=== PATIENT | female | born 1955 | race Caucasian/White ===

== ENCOUNTER 2016-05-14 13:00 | Outpatient (RCR) | payer OTHER ==
[~2016-05-14 13:00] MED LIST: CODCAP PO; GLUC1CAP10 PO; PERC5TAB6 PO; PROBCAP14 PO; ZOFR20TA PO
== END 2016-05-15 ==
LOC: M OT 13:00
PROVIDERS: ATTEND Physician Assistant Surgical
DX: Z51.89 Encounter for other specified aftercare (principal); Z98.890 Other specified postprocedural states

== ENCOUNTER → 2016-06-04 | Outpatient (CLI) | payer OTHER, MEDICAID ==
--- NOTE | 2016-06-04 23:45 | ECWPNPC ---
PATIENT NAME: NEAL MENARD : 1955 GENDER: FEMALE VISIT DATE: 06/04/2016 DISCHARGE DATE: 06/04/16 1539 VISIT LOCKED DATE TIME: PHYSICIAN: TAMIE CARTER RESOURCE: TAMIE CARTER REASON FOR APPOINTMENT 1. LEFT WRIST HISTORY OF PRESENT ILLNESS NEW PATIENT CONSULT: 60 Y/O FEMALE REFERRED BY [facility] FOR PERSISTENT LEFT WRIST PAIN S/P LEFT WRIST FX IN FEBRUARY 2016.HAD EMERGENCY SURGERY WITH HARDWARE PLACEMENT ON .THIS WAS DONE BY DR. DEL CASTILLO AN EMERGENCY ROOM PHYSICIAN AT THE TIME WHO NO LONGER IS IN PRACTICE.HAS BEEN ATTENDING PT 3X WK X2 MOS WITH LAST VISIT BEING TOMMOROW.REPORTS HYPERSENSITIVITY TO LIGHT TOUCH AND HYPERASTHESIA.REPORTING SWELLING AND COLOR CHANGES FROM REDDISH PURPLE TO NORMAL.REPORTING SWEATING OVER LEFT HAND AND FINGERS.UNABLE TO MAKE A FIST.REPORTS FEELING OF FREEZING SENSATION AND BURNING.INDEX FINGER IS NUMB AND IS THE WORST AREA OF PAIN AND PARATHESIAS.HAS NOT SEEN A SURGEON SINCE FRACTURE.RATING PAIN VAS 4/10. WHEN DID YOUR PAIN FIRST START? . BRIEFLY DESCRIBE HOW YOUR PAIN STARTED? . HOW DOES YOUR PAIN CHANGE WITH TIME? . DOES YOUR PAIN AWAKEN YOU FROM SLEEP? . HOW MANY HOURS OF SLEEP DO YOU NORMALLY GET? . ANY DIAGNOSTIC TESTING? . FACILITY WHERE TESTS WERE DONE? ____. PAIN TREATMENT TREATMENT YES CANCER HAVE YOU EVER HAD ANY TYPE OF CANCER?NO NO. PAIN SCREENING: PATIENT HAS A COMPLAINT OF ACUTE OR CHRONIC PAIN YES FALL RISK SCREENING: SCREENING :NO FALLS IN THE PAST YEAR BALDERAS INVENTORY: QUESTIONNAIRE ASSESSEDTBD SCORE VALUE CALCULATED TBD CURRENT MEDICATIONS TAKING MULTIVITAMIN ADULT - TABLET ORALLY TAKING PROBIOTIC - CAPSULE ORALLY TAKING GLUCOSAMINE 500 MG CAPSULE 1 CAPSULE WITH A MEAL ORALLY ONCE A DAY TAKING ASPIRIN 500 MG TABLET 1 TABLET NEEDED ORALLY EVERY 6 HRS DISCONTINUED ASPIRIN ADULT LOW STRENGTH 81 MG TABLET DELAYED RELEASE 1 TABLET ORALLY ONCE A DAY MEDICATION LIST REVIEWED AND RECONCILED WITH THE PATIENT PAST MEDICAL HISTORY 08/31/2012 LYME DISEASE SEVERE HEADACHE LP.ABY WAS 7.75 IGM POSITIVE IGG NEGATIVE ARTHRITIS PT REPORTS HX OF IRREGULAR HEARTBEAT, UNSURE OF DETAILS ALLERGIES N.K.D.A. SURGICAL HISTORY LEFT WRIST FRACTURE 03/02 GAN[facility] CYST LEFT WRIST FAMILY HISTORY FATHER: MOTHER: 78 YRS MOM OF PNEUMONIA. SOCIAL HISTORY GENERAL: PAIN CLINIC PFS, CLERGY, PUBLIC HEALTH REFERRALS PFS REFERRAL NEEDED?NO CLERGY REFERRAL NEEDED?NO PUBLIC HEALTH REFERRAL NEEDED?NO WAS THE PROVIDER NOTIFIED OF ANY PERTINENT INFO?YES PSYCHOLOGICAL HX TREATMENTNO ALCOHOL OR DRUG TREATMENTNO PATIENT: ____USES MARIJUANA OCCASIONALLY. ADVANCED DIRECTIVES HEALTH CARE PROXY?NO POWER OF COMMUTER TRAIN OPERATOR?NO SCREENING/ASSESSMENT TOOL NUTRITION ASSESSEDYES ARE YOU ON ANY SPECIAL DIET?NO ANY SIGNIFICANT CHANGES RELATED TO EATING, WEIGHT GAIN/LOSS, OR BOWEL HABITS?NO IF YES, IS YOUR PRIMARY CARE PROVIDER AWARE OF THIS?NO SPECIAL NEEDS CONTACTS: NO , CANE: NO , GLASSES: NO , WALKER: NO , LEVEL OF CARE? SELF , DENTURES: NO , REFERRALS NEEDED: NO , HEARING AIDS: NO , WHEELCHAIR: NO . TOBACCO USE ARE YOU A:FORMER SMOKER < 1/2 PPD X 20 YEARS, QUIT AT AGE 47 CAFFEINE CAFFEINE USE?YES HOW OFTEN AND HOW MUCH? 2 CUPS COFFEE/ DAY RECREATIONAL DRUG USE DRUG USE?YES OCCASIONAL USE OF MARIJUANA HOSPITALIZATION/MAJOR DIAGNOSTIC PROCEDURE PER PT, PERFORATED BOWEL DURING COLONOSCOPY REVIEW OF SYSTEMS CONSTITUTIONAL: ANY CHANGE IN YOUR MEDICAL CONDITION? YES PT BROKE HER LEFT WRIST 03/02, AND SUBSEQUENTLY HAD SURGERY 03/03. SHE HAS HAD SIGNIFICANT SWELLING AND DISCOMFORT IN HER LEFT HAND SINCE THAT TIME. . CHILLS NO . FEVER NO . INFECTION: DO YOU HAVE NEW INFECTIONS? NO . DO YOU HAVE HISTORY OF MRSA? NO . MUSCULOSKELETAL: ANY NEW PATTERNS OF PAIN OR NUMBNESS? YES LEFT HAND PAINFUL AND NUMB SINCE FRACTURING IT 03/02. SHE IS UNABLE TO USE HER LEFT HAND. . SYTEMIC LUPUS NO . GASTROENTEROLOGY: ANY NEW CHANGE IN BOWEL CONTROL? NO . BARRETTS ESOPHAGUS NO . CIRRHOSIS NO . HEPATITIS NO . LIVER FAILURE NO . ACID REFLUX NO . UNEXPLAINED WEIGHT LOSS NO . GENITOURINARY: ANY NEW CHANGE IN BLADDER CONTROL? NO . IS THERE A CHANCE YOU COULD BE ? NO . HEMATOLOGY/LYMPH: DO YOU TAKE ANY BLOOD THINNERS? (FOR EXAMPLE- COUMADIN, PLAVIX, AGGRENOX, PLATEL, PRADAXA, OR XARELTO) NO . WHEN WAS YOUR LAST DOSE? DATE: TIME: . LOW PLATELET COUNT NO . SICKLE CELL DISEASE NO . VON WILLIEBRANDS NO . FACTOR V LEIDEN NO . THALLASEMIA NO . ANEMIA NO . EASY BRUISING NO . NEUROLOGY: HAVE YOU FALLEN IN THE PAST 6 MONTHS? YES PT REPORTS SHE CAUGHT HER HEEL ON A RUG AND WENT BACKWARDS, SUSTAINING A FRACTURED LEFT WRIST. . ANY NEW EXTREMITY NUMBNESS OR WEAKNESS? NO . HEAD INJURY NO . DEMENTIA NO . CEREBRAL PALSY NO . MULTIPLE SCLEROSIS NO . DIZZINESS NO . HEADACHE NO . STROKES NO . VERTIGO NO . CARDIOLOGY: DO YOU HAVE A PACEMAKER OR DEFIBRILLATOR? NO . ANGINA NO . HEART ATTACK NO . HEART SURGERY NO . CONGESTIVE HEART FAILURE/FLUID OVERLOAD NO . CHEST PAIN PT REPORTS OCCASIONAL CHEST DISCOMFORT, FEELS IT IS RELATED TO INDIGESTION . HIGH BLOOD PRESSURE NO . IRREGULAR HEART BEAT PT REPORTS THAT SHE WAS TOLD DURING HER COLONOSCOPY, SHE HAD AN IRREGULAR HEART BEAT, BUT NO DETAILS ABOUT IT. . RESPIRATORY: HAVE YOU BEEN SICK IN THE PAST WEEK? NO . FEVER NO . FLU LIKE SYMPTOMS? NO . CPAP NO . BYPAP NO . ASTHMA NO . EMPHYSEMA NO . CHRONIC LUNG DISEASES NO . SHORTNESS OF BREATH ON EXERTION NO . DO YOU USE ANY TYPE OF TOBACCO (SMOKE, SMOKELESS, CHEW)? NO . COUGH NO . SNORING NO . INTEGUMENTARY: DO YOU HAVE ANY RASHES OR OPEN SORES? NO . ALLERGIC/IMMUNO: ARE YOU ALLERGIC TO SHELLFISH OR IV DYE? NO . ANY NEW ALLERGIES? NO . PSYCHIATRIC: DO YOU HAVE THOUGHTS OF HURTING YOURSELF OR SOMEONE ELSE? NO . ARE YOU ABUSED, NEGLECTED, OR IN AN UNSAFE ENVIRONMENT? NO . ENDOCRINOLOGY: ARE YOU DIABETIC? NO . THYROID DISORDER NO . OTHER: DO YOU NEED ANY PRESCRIPTIONS? NO . IF YES, PLEASE LIST: ____ . ANY NEW PROBLEMS WITH YOUR MEDICATIONS? NO . WHEN DID YOU LAST EAT? ____ . WHEN DID YOU LAST DRINK? ____ . WHAT DID YOU LAST DRINK? ____ . NAME OF PERSON DRIVING YOU HOME? ____ . DO YOU HAVE ANY OTHER QUESTIONS OR CONCERNS NO . REVIEWED BY: PROVIDER: TAMIE LEE . VITAL SIGNS WT 140.2 LBS, HT 62.5 IN, BMI 25.23 INDEX, BP 151/78 MM HG, HR 66 /MIN, RR 16 /MIN, TEMP 98.9 F, OXYGEN SAT % 98%, SAFE IN ENV? (Y/N) YES, NA INITIALS SC 13:40, REVIEWED BY: LAS. EXAMINATION GENERAL EXAMINATION: GENERAL APPEARANCE:WEEPY.AWAKE AND ALERT.. NECK:NEGATIVE FOR LYMPHADENOPATHY.. LUNGS:LUNG SOUNDS ARE CLEAR.RESPIRATIONS NON-LABORED.. HEART:HRRS1/S2. ABDOMEN:SOFT, NON-TENDER, NO ORGANOMEGALY, BOWEL SOUNDS ARE NORMAL. TEMPERATURE PROBE BILAT. HANDS DONE. WRIST / HAND: WRIST:LEFT-WELL HEALED SURGICAL SCAR 3 INCHES. INSPECTION:SWELLING OVER LEFT HAND AND FINGERS NOTED. RANGE OF MOTION:UNABLE TO MOVE FINGERS.UNABLE TO FORM A FIST-LEFT HAND. PALPATION:HYPERSENSITIVE TO LIGHT TOUCH OVER LEFT HAND AND FINGERS.. HAND:LEFT-DESCRIBED ABOVE.. ASSESSMENTS LEFT HAND PAIN - M79.642 (PRIMARY) CHRONIC POSTOPERATIVE PAIN - G89.28 TREATMENT LEFT HAND PAIN START GABAPENTIN CAPSULE, 100 MG, DIRECTED, ORALLY, TID, 30 DAY(S), 90, REFILLS 1 NOTES: TAKE GABAPENTIN 100MG AT BEDTIME X3 DAYS THEN ONE AM AND PM X10 DAYS THEN ONE THREE TIMES PER DAY. [facility] REASON:PROBABLE CRPS LEFT HAND S/P WRIST FX W HARDWARE S/P TRAUMATIC FX PROCEDURE CODES FA211 ESTABILISHED PATIENT [facility] FACILITY CHARGE DISPOSITION & COMMUNICATION FOLLOW UP 4 WEEKS (REASON: REFER TO DR. SANCHEZ) ELECTRONICALLY SIGNED BY ROSA MORA ON 06/04/2016 AT 04:55 PM EDT DISCLAIMER : THIS IS A VISIT SUMMARY EXTRACTED FROM THE [employer] CHART. IT IS NOT A COPY OF THE [employer] PROGRESS NOTE. KEMI
== END ==
LOC: M PAIN 13:20
PROVIDERS: ATTEND Nurse Practitioner Family
DX: G89.28 Other chronic postprocedural pain (principal); M79.642 Pain in left hand; M19.90 Unspecified osteoarthritis, unspecified site; Z79.899 Other long term (current) drug therapy; Z87.891 Personal history of nicotine dependence

== ENCOUNTER 2016-06-05 13:00 | Outpatient (RCR) | payer OTHER | END 2016-06-15 | LOC: M OT 13:00 | PROVIDERS: ATTEND Physician Assistant Surgical | DX: Z51.89 Encounter for other specified aftercare (principal) ==

== ENCOUNTER → 2016-07-05 | Outpatient (CLI) | payer OTHER, MEDICAID ==
--- NOTE | 2016-07-17 00:34 | ECWPNPC ---
PATIENT NAME: NEAL MENARD : 1955 GENDER: FEMALE VISIT DATE: 07/05/2016 DISCHARGE DATE: 07/05/16 1432 VISIT LOCKED DATE TIME: PHYSICIAN: TAMIE CARTER RESOURCE: TAMIE CARTER HISTORY OF PRESENT ILLNESS HISTORY OF PRESENT ILLNESS: PAIN THE PATIENT DESCRIBES THE PAIN... FALL RISK SCREENING: SCREENING :NO FALLS IN THE PAST YEAR NEW PATIENT CONSULT: 60 Y/O FEMALE REFERRED BY [facility] FOR PERSISTENT LEFT WRIST PAIN S/P LEFT WRIST FX IN FEBRUARY 2016.HAD EMERGENCY SURGERY WITH HARDWARE PLACEMENT ON .THIS WAS DONE BY DR. DEL CASTILLO AN EMERGENCY ROOM PHYSICIAN AT THE TIME WHO NO LONGER IS IN PRACTICE.HAS BEEN ATTENDING PT 3X WK X2 MOS WITH LAST VISIT BEING TOMMOROW.REPORTS HYPERSENSITIVITY TO LIGHT TOUCH AND HYPERASTHESIA.REPORTING SWELLING AND COLOR CHANGES FROM REDDISH PURPLE TO NORMAL.REPORTING SWEATING OVER LEFT HAND AND FINGERS.UNABLE TO MAKE A FIST.REPORTS FEELING OF FREEZING SENSATION AND BURNING.INDEX RATING PAIN VAS 1/10.FOLLOWING WITH [facility] AND THEY HAVE REFERRED TO -HAND SPECIALIST IN [place].STARTED GABAPENTIN 100MG TID AT OUR LAST VISIT AND SHE DOES FIND IT HELPFUL AND REPORTING IMPROVED SLEEP.DISCUSSED MEDICATION AND TREATMENT OPTIONS. WHEN DID YOUR PAIN FIRST START? . BRIEFLY DESCRIBE HOW YOUR PAIN STARTED? . HOW DOES YOUR PAIN CHANGE WITH TIME? . DOES YOUR PAIN AWAKEN YOU FROM SLEEP? . HOW MANY HOURS OF SLEEP DO YOU NORMALLY GET? . ANY DIAGNOSTIC TESTING? . FACILITY WHERE TESTS WERE DONE? ____. PAIN TREATMENT TREATMENT YES CANCER HAVE YOU EVER HAD ANY TYPE OF CANCER?NO NO. CURRENT MEDICATIONS TAKING MULTIVITAMIN ADULT - TABLET ORALLY DAILY TAKING PROBIOTIC - CAPSULE ORALLY DAILY TAKING GLUCOSAMINE 500 MG CAPSULE 1 CAPSULE WITH A MEAL ORALLY BID TAKING ASPIRIN 500 MG TABLET 1 TABLET NEEDED ORALLY EVERY 6 HRS TAKING GABAPENTIN 100 MG CAPSULE DIRECTED ORALLY TID MEDICATION LIST REVIEWED AND RECONCILED WITH THE PATIENT PAST MEDICAL HISTORY 08/31/2012 LYME DISEASE SEVERE HEADACHE LP.ABY WAS 7.75 IGM POSITIVE IGG NEGATIVE ARTHRITIS PT REPORTS HX OF IRREGULAR HEARTBEAT, UNSURE OF DETAILS ALLERGIES N.K.D.A. SOCIAL HISTORY GENERAL: PAIN CLINIC PFS, CLERGY, PUBLIC HEALTH REFERRALS CLERGY REFERRAL NEEDED?NO WAS THE PROVIDER NOTIFIED OF ANY PERTINENT INFO?NO PFS REFERRAL NEEDED?NO PUBLIC HEALTH REFERRAL NEEDED?NO PATIENT: ____. REVIEW OF SYSTEMS CONSTITUTIONAL: ANY CHANGE IN YOUR MEDICAL CONDITION? NO . CHILLS NO . FEVER NO . INFECTION: DO YOU HAVE NEW INFECTIONS? NO . DO YOU HAVE HISTORY OF MRSA? NO . MUSCULOSKELETAL: ANY NEW PATTERNS OF PAIN OR NUMBNESS? NO . GASTROENTEROLOGY: ANY NEW CHANGE IN BOWEL CONTROL? NO . GENITOURINARY: ANY NEW CHANGE IN BLADDER CONTROL? NO . IS THERE A CHANCE YOU COULD BE ? NO . HEMATOLOGY/LYMPH: DO YOU TAKE ANY BLOOD THINNERS? (FOR EXAMPLE- COUMADIN, PLAVIX, AGGRENOX, PLATEL, PRADAXA, OR XARELTO) NO . WHEN WAS YOUR LAST DOSE? DATE: TIME: . NEUROLOGY: HAVE YOU FALLEN IN THE PAST 6 MONTHS? YES, 03/02/16 FX LEFT WRIST . ANY NEW EXTREMITY NUMBNESS OR WEAKNESS? NO . CARDIOLOGY: DO YOU HAVE A PACEMAKER OR DEFIBRILLATOR? NO . RESPIRATORY: HAVE YOU BEEN SICK IN THE PAST WEEK? NO . FEVER NO . FLU LIKE SYMPTOMS? NO . COUGH NO . INTEGUMENTARY: DO YOU HAVE ANY RASHES OR OPEN SORES? NO . ALLERGIC/IMMUNO: ARE YOU ALLERGIC TO SHELLFISH OR IV DYE? NO . ANY NEW ALLERGIES? NO . PSYCHIATRIC: DO YOU HAVE THOUGHTS OF HURTING YOURSELF OR SOMEONE ELSE? NO . ARE YOU ABUSED, NEGLECTED, OR IN AN UNSAFE ENVIRONMENT? NO . ENDOCRINOLOGY: ARE YOU DIABETIC? NO . OTHER: DO YOU NEED ANY PRESCRIPTIONS? NO . IF YES, PLEASE LIST: ____ . ANY NEW PROBLEMS WITH YOUR MEDICATIONS? NO . WHEN DID YOU LAST EAT? ____ . WHEN DID YOU LAST DRINK? ____ . WHAT DID YOU LAST DRINK? ____ . NAME OF PERSON DRIVING YOU HOME? ____ . DO YOU HAVE ANY OTHER QUESTIONS OR CONCERNS NO . REVIEWED BY: PROVIDER: TAMIE LEE . VITAL SIGNS WT 142.2 LBS, HT 62.5 IN, BMI 25.59 INDEX, BP 113/69 MM HG, HR 62 /MIN, RR 16 /MIN, TEMP 97.9 F, OXYGEN SAT % 97%, NA INITIALS AW 1358, REVIEWED BY: AD. EXAMINATION GENERAL EXAMINATION: GENERAL APPEARANCE:WEEPY.AWAKE AND ALERT.. NECK:NEGATIVE FOR LYMPHADENOPATHY.. LUNGS:LUNG SOUNDS ARE CLEAR.RESPIRATIONS NON-LABORED.. HEART:HRRS1/S2. ABDOMEN:SOFT, NON-TENDER, NO ORGANOMEGALY, BOWEL SOUNDS ARE NORMAL. TEMPERATURE PROBE BILAT. HANDS DONE. WRIST / HAND: WRIST:LEFT-WELL HEALED SURGICAL SCAR 3 INCHES. INSPECTION:SWELLING OVER LEFT HAND AND FINGERS NOTED. RANGE OF MOTION:UNABLE TO MOVE FINGERS.UNABLE TO FORM A FIST-LEFT HAND. PALPATION:HYPERSENSITIVE TO LIGHT TOUCH OVER LEFT HAND AND FINGERS.. HAND:LEFT-DESCRIBED ABOVE.. ASSESSMENTS LEFT HAND PAIN - M79.642 (PRIMARY) CHRONIC POSTOPERATIVE PAIN - G89.28 TREATMENT LEFT HAND PAIN REFILL GABAPENTIN CAPSULE, 100 MG, 2, ORALLY, TID, 30 DAY(S), 180, REFILLS 2 DISPOSITION & COMMUNICATION FOLLOW UP 6 WEEKS ELECTRONICALLY SIGNED BY ROSA MORA ON 07/16/2016 AT 12:30 PM EDT DISCLAIMER : THIS IS A VISIT SUMMARY EXTRACTED FROM THE [employer] CHART. IT IS NOT A COPY OF THE [employer] PROGRESS NOTE. KEMI
== END ==
LOC: M PAIN 14:00
PROVIDERS: ATTEND Nurse Practitioner Family
DX: G89.28 Other chronic postprocedural pain (principal); M79.642 Pain in left hand; Z79.82 Long term (current) use of aspirin; Z79.899 Other long term (current) drug therapy

== ENCOUNTER → 2016-08-07 | Outpatient (CLI) | payer OTHER, MEDICAID ==
--- NOTE | 2016-08-30 01:51 | ECWPNPC ---
PATIENT NAME: NEAL MENARD : 1955 GENDER: FEMALE VISIT DATE: 08/07/2016 DISCHARGE DATE: 08/07/16 1521 VISIT LOCKED DATE TIME: PHYSICIAN: TAMIE CARTER RESOURCE: TAMIE CARTER HISTORY OF PRESENT ILLNESS HISTORY OF PRESENT ILLNESS: PAIN THE PATIENT DESCRIBES THE PAIN... FALL RISK SCREENING: SCREENING :NO FALLS IN THE PAST YEAR NEW PATIENT CONSULT: 60 Y/O FEMALE REFERRED BY [facility] FOR PERSISTENT LEFT WRIST PAIN S/P LEFT WRIST FX IN FEBRUARY 2016.HAD EMERGENCY SURGERY WITH HARDWARE PLACEMENT ON .THIS WAS DONE BY DR. DEL CASTILLO AN EMERGENCY ROOM PHYSICIAN AT THE TIME WHO NO LONGER IS IN PRACTICE.HAS BEEN ATTENDING PT 3X WK X2 MOS WITH LAST VISIT BEING TOMMOROW.REPORTING SWEATING OVER LEFT HAND AND FINGERS.UNABLE TO MAKE A FIST. RATING PAIN VAS 4/10.FOLLOWING WITH [facility] AND THEY HAVE REFERRED TO -HAND SPECIALIST IN [place].SAW DR. SANCHEZ LAST WEEK WHO HAS ORDERED SOME NCS.INCREASEDGABAPENTIN TO 200MG TID AT OUR LAST VISIT AND SHE DOES FIND IT HELPFUL AND REPORTING IMPROVED SLEEP AND NO MORE BURNING AND LESS PAIN.DISCUSSED MEDICATION AND TREATMENT OPTIONS. WHEN DID YOUR PAIN FIRST START? . BRIEFLY DESCRIBE HOW YOUR PAIN STARTED? . HOW DOES YOUR PAIN CHANGE WITH TIME? . DOES YOUR PAIN AWAKEN YOU FROM SLEEP? . HOW MANY HOURS OF SLEEP DO YOU NORMALLY GET? . ANY DIAGNOSTIC TESTING? . FACILITY WHERE TESTS WERE DONE? ____. PAIN TREATMENT TREATMENT YES CANCER HAVE YOU EVER HAD ANY TYPE OF CANCER?NO NO. CURRENT MEDICATIONS TAKING MULTIVITAMIN ADULT - TABLET ORALLY DAILY TAKING PROBIOTIC - CAPSULE ORALLY DAILY TAKING GLUCOSAMINE 500 MG CAPSULE 1 CAPSULE WITH A MEAL ORALLY BID TAKING ASPIRIN 500 MG TABLET 1 TABLET NEEDED ORALLY EVERY 6 HRS TAKING GABAPENTIN 100 MG CAPSULE 2 ORALLY TID MEDICATION LIST REVIEWED AND RECONCILED WITH THE PATIENT PAST MEDICAL HISTORY 08/31/2012 LYME DISEASE SEVERE HEADACHE LP.ABY WAS 7.75 IGM POSITIVE IGG NEGATIVE ARTHRITIS PT REPORTS HX OF IRREGULAR HEARTBEAT, UNSURE OF DETAILS ALLERGIES N.K.D.A. SURGICAL HISTORY LEFT WRIST FRACTURE 03/02 [facility] CYST LEFT WRIST HOSPITALIZATION/MAJOR DIAGNOSTIC PROCEDURE PER PT, PERFORATED BOWEL DURING COLONOSCOPY REVIEW OF SYSTEMS CONSTITUTIONAL: ANY CHANGE IN YOUR MEDICAL CONDITION? NO . CHILLS NO . FEVER NO . INFECTION: DO YOU HAVE NEW INFECTIONS? NO . DO YOU HAVE HISTORY OF MRSA? NO . MUSCULOSKELETAL: ANY NEW PATTERNS OF PAIN OR NUMBNESS? NO . GASTROENTEROLOGY: ANY NEW CHANGE IN BOWEL CONTROL? NO . GENITOURINARY: ANY NEW CHANGE IN BLADDER CONTROL? NO . IS THERE A CHANCE YOU COULD BE ? NO . HEMATOLOGY/LYMPH: DO YOU TAKE ANY BLOOD THINNERS? (FOR EXAMPLE- COUMADIN, PLAVIX, AGGRENOX, PLATEL, PRADAXA, OR XARELTO) NO . WHEN WAS YOUR LAST DOSE? DATE: TIME: . NEUROLOGY: HAVE YOU FALLEN IN THE PAST 6 MONTHS? NO . ANY NEW EXTREMITY NUMBNESS OR WEAKNESS? NO . CARDIOLOGY: DO YOU HAVE A PACEMAKER OR DEFIBRILLATOR? NO . RESPIRATORY: HAVE YOU BEEN SICK IN THE PAST WEEK? NO . FEVER NO . FLU LIKE SYMPTOMS? NO . COUGH NO . INTEGUMENTARY: DO YOU HAVE ANY RASHES OR OPEN SORES? NO . ALLERGIC/IMMUNO: ARE YOU ALLERGIC TO SHELLFISH OR IV DYE? NO . ANY NEW ALLERGIES? NO . PSYCHIATRIC: DO YOU HAVE THOUGHTS OF HURTING YOURSELF OR SOMEONE ELSE? NO . ARE YOU ABUSED, NEGLECTED, OR IN AN UNSAFE ENVIRONMENT? NO . ENDOCRINOLOGY: ARE YOU DIABETIC? NO . OTHER: DO YOU NEED ANY PRESCRIPTIONS? NO . IF YES, PLEASE LIST: ____ . ANY NEW PROBLEMS WITH YOUR MEDICATIONS? NO . WHEN DID YOU LAST EAT? ____ . WHEN DID YOU LAST DRINK? ____ . WHAT DID YOU LAST DRINK? ____ . NAME OF PERSON DRIVING YOU HOME? ____ . DO YOU HAVE ANY OTHER QUESTIONS OR CONCERNS NO . REVIEWED BY: PROVIDER: TAMIE LEE . VITAL SIGNS WT 139.6 LBS, HT 62.5 IN, BMI 25.12 INDEX, BP 146/77 MM HG, HR 65 /MIN, RR 16 /MIN, TEMP 98.1 F, OXYGEN SAT % 98%, SAFE IN ENV? (Y/N) Y, NA INITIALS TL 1444, REVIEWED BY: EM. EXAMINATION GENERAL EXAMINATION: GENERAL APPEARANCE:WEEPY.AWAKE AND ALERT.. NECK:NEGATIVE FOR LYMPHADENOPATHY.. LUNGS:LUNG SOUNDS ARE CLEAR.RESPIRATIONS NON-LABORED.. HEART:HRRS1/S2. WRIST / HAND: WRIST:LEFT-WELL HEALED SURGICAL SCAR 3 INCHES. INSPECTION:SWELLING OVER LEFT HAND AND FINGERS NOTED. RANGE OF MOTION:UNABLE TO MOVE FINGERS.UNABLE TO FORM A FIST-LEFT HAND. ASSESSMENTS LEFT HAND PAIN - M79.642 (PRIMARY) CHRONIC POSTOPERATIVE PAIN - G89.28 TREATMENT LEFT HAND PAIN INCREASE GABAPENTIN CAPSULE, 300 MG, 1, ORALLY, BID, 30 DAY(S), 60, REFILLS 2 PROCEDURE CODES FA211 ESTABILISHED PATIENT [facility] CHARGE DISPOSITION & COMMUNICATION FOLLOW UP 2 MONTHS ELECTRONICALLY SIGNED BY ROSA MORA ON 08/29/2016 AT 01:40 PM EDT DISCLAIMER : THIS IS A VISIT SUMMARY EXTRACTED FROM THE [employer] CHART. IT IS NOT A COPY OF THE [employer] PROGRESS NOTE. KEMI
== END ==
LOC: M PAIN 14:40
PROVIDERS: ATTEND Nurse Practitioner Family
DX: G89.29 Other chronic pain (principal); M25.532 Pain in left wrist; M19.90 Unspecified osteoarthritis, unspecified site; Z79.82 Long term (current) use of aspirin; Z79.899 Other long term (current) drug therapy

== ENCOUNTER → 2016-10-08 | Outpatient (CLI) | payer OTHER, MEDICAID ==
[~2016-10-08] MED LIST changes: +PERC5TAB12 PO; -PERC5TAB6 PO
--- NOTE | 2016-10-10 00:54 | ECWPNPC ---
PATIENT NAME: NEAL MENARD : 1955 GENDER: FEMALE VISIT DATE: 10/08/2016 DISCHARGE DATE: 10/08/16 1040 VISIT LOCKED DATE TIME: PHYSICIAN: TAMIE CARTER RESOURCE: TAMIE CARTER REASON FOR APPOINTMENT 1. LEFT HAND HISTORY OF PRESENT ILLNESS HISTORY OF PRESENT ILLNESS: PAIN THE PATIENT DESCRIBES THE PAIN... FALL RISK SCREENING: SCREENING :NO FALLS IN THE PAST YEAR NEW PATIENT CONSULT: 60 Y/O FEMALE REFERRED BY [facility] FOR PERSISTENT LEFT WRIST PAIN S/P LEFT WRIST FX IN FEBRUARY 2016.HAD EMERGENCY SURGERY WITH HARDWARE PLACEMENT ON .THIS WAS DONE BY DR. DEL CASTILLO AN EMERGENCY ROOM PHYSICIAN AT THE TIME WHO NO LONGER IS IN PRACTICE. ATTENDED PT 3X WK FOR 8 WEEKS RECENTLY .REPORTING SWEATING OVER LEFT HAND AND FINGERS.UNABLE TO MAKE A FIST. RATING PAIN VAS 4/10.FOLLOWING WITH [facility] AND THEY HAVE REFERRED TO -HAND SPECIALIST IN [place].SAW DR. SANCHEZ RECENTLY AND IS SCHEDULED FOR [facility] .INCREASEDGABAPENTIN TO 300MG BID AT OUR LAST VISIT AND SHE DOES FIND IT HELPFUL AND REPORTING IMPROVED SLEEP AND NO MORE BURNING AND LESS PAIN.DISCUSSED MEDICATION AND TREATMENT OPTIONS. WHEN DID YOUR PAIN FIRST START? . BRIEFLY DESCRIBE HOW YOUR PAIN STARTED? . HOW DOES YOUR PAIN CHANGE WITH TIME? . DOES YOUR PAIN AWAKEN YOU FROM SLEEP? . HOW MANY HOURS OF SLEEP DO YOU NORMALLY GET? . ANY DIAGNOSTIC TESTING? . FACILITY WHERE TESTS WERE DONE? ____. PAIN TREATMENT TREATMENT YES CANCER HAVE YOU EVER HAD ANY TYPE OF CANCER?NO NO. CURRENT MEDICATIONS TAKING MULTIVITAMIN ADULT - TABLET ORALLY DAILY TAKING PROBIOTIC - CAPSULE ORALLY DAILY TAKING GLUCOSAMINE 500 MG CAPSULE 1 CAPSULE WITH A MEAL ORALLY BID TAKING GABAPENTIN 300 MG CAPSULE 1 ORALLY BID NOT-TAKING ASPIRIN 500 MG TABLET 1 TABLET NEEDED ORALLY EVERY 6 HRS MEDICATION LIST REVIEWED AND RECONCILED WITH THE PATIENT PAST MEDICAL HISTORY 08/31/2012 LYME DISEASE SEVERE HEADACHE LP.ABY WAS 7.75 IGM POSITIVE IGG NEGATIVE ARTHRITIS PT REPORTS HX OF IRREGULAR HEARTBEAT, UNSURE OF DETAILS ALLERGIES N.K.D.A. SOCIAL HISTORY GENERAL: PAIN CLINIC PFS, CLERGY, PUBLIC HEALTH REFERRALS PFS REFERRAL NEEDED?NO CLERGY REFERRAL NEEDED?NO PUBLIC HEALTH REFERRAL NEEDED?NO WAS THE PROVIDER NOTIFIED OF ANY PERTINENT INFO?NO HAS THE PATIENT BEEN EDUCATED REGARDING HIS/HER PLAN OF CARE?YES HAS THE PATIENT BEEN EDUCATED REGARDING PAIN, THE RISK FOR PAIN, THE IMPORTANCE OF EFFECTIVE PAIN MANAGEMENT, AND THE PAIN ASSESSMENT PROCESS?YES PATIENT: ____. REVIEW OF SYSTEMS REVIEWED BY: PROVIDER: TAMIE LEE . CONSTITUTIONAL: ANY CHANGE IN YOUR MEDICAL CONDITION? NO . CHILLS NO . FEVER NO . INFECTION: DO YOU HAVE NEW INFECTIONS? NO . DO YOU HAVE HISTORY OF MRSA? NO . MUSCULOSKELETAL: ANY NEW PATTERNS OF PAIN OR NUMBNESS? NO . GASTROENTEROLOGY: ANY NEW CHANGE IN BOWEL CONTROL? NO . GENITOURINARY: ANY NEW CHANGE IN BLADDER CONTROL? NO . IS THERE A CHANCE YOU COULD BE ? NO . HEMATOLOGY/LYMPH: DO YOU TAKE ANY BLOOD THINNERS? (FOR EXAMPLE- COUMADIN, PLAVIX, AGGRENOX, PLATEL, PRADAXA, OR XARELTO) NO . WHEN WAS YOUR LAST DOSE? DATE: TIME: . NEUROLOGY: HAVE YOU FALLEN IN THE PAST 6 MONTHS? NO . ANY NEW EXTREMITY NUMBNESS OR WEAKNESS? NO . CARDIOLOGY: DO YOU HAVE A PACEMAKER OR DEFIBRILLATOR? NO . RESPIRATORY: HAVE YOU BEEN SICK IN THE PAST WEEK? NO . FEVER NO . FLU LIKE SYMPTOMS? NO . COUGH NO . INTEGUMENTARY: DO YOU HAVE ANY RASHES OR OPEN SORES? NO . ALLERGIC/IMMUNO: ARE YOU ALLERGIC TO SHELLFISH OR IV DYE? NO . ANY NEW ALLERGIES? NO . PSYCHIATRIC: DO YOU HAVE THOUGHTS OF HURTING YOURSELF OR SOMEONE ELSE? NO . ARE YOU ABUSED, NEGLECTED, OR IN AN UNSAFE ENVIRONMENT? NO . ENDOCRINOLOGY: ARE YOU DIABETIC? NO . OTHER: DO YOU NEED ANY PRESCRIPTIONS? NO . IF YES, PLEASE LIST: ____ . ANY NEW PROBLEMS WITH YOUR MEDICATIONS? NO . WHEN DID YOU LAST EAT? ____ . WHEN DID YOU LAST DRINK? ____ . WHAT DID YOU LAST DRINK? ____ . NAME OF PERSON DRIVING YOU HOME? ____ . DO YOU HAVE ANY OTHER QUESTIONS OR CONCERNS NO . VITAL SIGNS WT 137.8 LBS, HT 62.5 IN, BMI 24.80 INDEX, BP 139/67 MM HG, HR 71 /MIN, RR 16 /MIN, TEMP 98.3 F, OXYGEN SAT % 97%, REVIEWED BY: MARION (DONE AT 1013). EXAMINATION GENERAL EXAMINATION: GENERAL APPEARANCE:WEEPY.AWAKE AND ALERT.. NECK:NEGATIVE FOR LYMPHADENOPATHY.. LUNGS:LUNG SOUNDS ARE CLEAR.RESPIRATIONS NON-LABORED.. HEART:HRRS1/S2. WRIST / HAND: WRIST:LEFT-WELL HEALED SURGICAL SCAR 3 INCHES. INSPECTION:SWELLING OVER LEFT HAND AND FINGERS NOTED. RANGE OF MOTION:UNABLE TO MOVE FINGERS.UNABLE TO FORM A FIST-LEFT HAND. ASSESSMENTS LEFT HAND PAIN - M79.642 (PRIMARY) TREATMENT LEFT HAND PAIN REFILL GABAPENTIN CAPSULE, 300 MG, 1, ORALLY, BID, 30 DAY(S), 60, REFILLS 2 PROCEDURE CODES FA211 ESTABILISHED PATIENT [facility] CHARGE DISPOSITION & COMMUNICATION FOLLOW UP 3 MONTHS ELECTRONICALLY SIGNED BY ROSA MORA ON 10/08/2016 AT 10:45 AM EDT DISCLAIMER : THIS IS A VISIT SUMMARY EXTRACTED FROM THE [employer] CHART. IT IS NOT A COPY OF THE [employer] PROGRESS NOTE. KEMI
== END ==
LOC: M PAIN 10:00
PROVIDERS: ATTEND Nurse Practitioner Family
DX: G89.28 Other chronic postprocedural pain (principal); M79.642 Pain in left hand; M19.90 Unspecified osteoarthritis, unspecified site; Z79.899 Other long term (current) drug therapy

== ENCOUNTER → 2017-01-08 | Outpatient (CLI) | payer OTHER, MEDICAID ==
--- NOTE | 2017-01-09 02:50 | ECWPNPC ---
PATIENT NAME: NEAL MENARD : 1955 GENDER: FEMALE VISIT DATE: 01/08/2017 DISCHARGE DATE: 01/08/17 1033 VISIT LOCKED DATE TIME: PHYSICIAN: TAMIE CARTER RESOURCE: TAMIE CARTER REASON FOR APPOINTMENT 1. FOLLOWUP HISTORY OF PRESENT ILLNESS HISTORY OF PRESENT ILLNESS: HERE FOR F/U OF CHRONIC LEFT HAND PAIN S/P FRACTURE LEFT WRIST FEBRUARY 2016.CONTINUES TO HAVE GOOD PAIN CONTROL WITH GABAPENTIN 300MG BID.HAD LEFT HAND CTR 12-05-[address] SANCHEZ.CONTINUES TO FOLLOW CLOSELY WITH HIM.CONTINUES WITH LEFT FINGER STIFFNESS. PAIN THE PATIENT DESCRIBES THE PAIN... FALL RISK SCREENING: SCREENING :NO FALLS IN THE PAST YEAR CURRENT MEDICATIONS TAKING MULTIVITAMIN ADULT - TABLET 1 TAB ORALLY DAILY TAKING PROBIOTIC - CAPSULE 1 CAPSULE ORALLY DAILY TAKING GLUCOSAMINE 500 MG CAPSULE 1 CAPSULE WITH A MEAL ORALLY BID TAKING GABAPENTIN 300 MG CAPSULE 1 ORALLY BID TAKING VITAMIN B COMPLEX - CAPSULE 1 DROP ORALLY DAILY TAKING ASPIRIN 500 MG TABLET 1 TABLET NEEDED ORALLY TWICE A DAY NEEDED TAKING CALCIUM 600 MG TABLET 1 TABLET WITH MEALS ORALLY DAILY MEDICATION LIST REVIEWED AND RECONCILED WITH THE PATIENT PAST MEDICAL HISTORY 08/31/2012 LYME DISEASE SEVERE HEADACHE LP.ABY WAS 7.75 IGM POSITIVE IGG NEGATIVE ARTHRITIS PT REPORTS HX OF IRREGULAR HEARTBEAT, UNSURE OF DETAILS ALLERGIES N.K.D.A. SOCIAL HISTORY GENERAL: TOBACCO USE ARE YOU A:NONSMOKER ALCOHOL SCREENING POINTS4 INTERPRETATIONPOSITIVE RECREATIONAL DRUG USE DRUG USE?YES SMOKES MARIJUANA APPROXIMATELY ONCE A MONTH CATHOLIC [id number] NONE LANGUAGE LANGUAGES SPOKEN:MOZAMBICAN LEARNING BARRIERS / SPECIAL NEEDS BARRIERS TO LEARNING?NO HEARING IMPAIRED?NO VISION IMPAIRED?YES :CORRECTIVE LENSES COGNITIVELY IMPAIRED?NO READINESS TO LEARN?YES LEARNING PREFERENCES?NO LEARNING CAPABILITIES PRESENT?YES EMOTIONAL BARRIERS?NO SPECIAL DEVICES?NO ENTERPRISE APPLICATION ADMINISTRATOR NEEDED?NO PAIN CLINIC PFS, CLERGY, PUBLIC HEALTH REFERRALS PFS REFERRAL NEEDED?NO CLERGY REFERRAL NEEDED?NO PUBLIC HEALTH REFERRAL NEEDED?NO WAS THE PROVIDER NOTIFIED OF ANY PERTINENT INFO?NO HAS THE PATIENT BEEN EDUCATED REGARDING HIS/HER PLAN OF CARE?YES HAS THE PATIENT BEEN EDUCATED REGARDING PAIN, THE RISK FOR PAIN, THE IMPORTANCE OF EFFECTIVE PAIN MANAGEMENT, AND THE PAIN ASSESSMENT PROCESS?YES PATIENT: ____. ADVANCE DIRECTIVES HEALTH CARE PROXY?NO WOULD YOU LIKE MORE INFORMATION?NO DO YOU HAVE A DNR?NO WOULD YOU LIKE MORE INFORMATION?NO LIVING WILL?NO WOULD YOU LIKE MORE INFORMATION?NO POWER OF ENT PHYSICIAN?NO WOULD YOU LIKE MORE INFORMATION?NO REVIEW OF SYSTEMS REVIEWED BY: PROVIDER: TAMIE LEE . CONSTITUTIONAL: ANY CHANGE IN YOUR MEDICAL CONDITION? NO . CHILLS NO . FEVER NO . INFECTION: DO YOU HAVE NEW INFECTIONS? NO . DO YOU HAVE HISTORY OF MRSA? NO . MUSCULOSKELETAL: ANY NEW PATTERNS OF PAIN OR NUMBNESS? NO . GASTROENTEROLOGY: ANY NEW CHANGE IN BOWEL CONTROL? NO . GENITOURINARY: ANY NEW CHANGE IN BLADDER CONTROL? NO . IS THERE A CHANCE YOU COULD BE ? NO . HEMATOLOGY/LYMPH: DO YOU TAKE ANY BLOOD THINNERS? (FOR EXAMPLE- COUMADIN, PLAVIX, AGGRENOX, PLATEL, PRADAXA, OR XARELTO) NO . WHEN WAS YOUR LAST DOSE? DATE: TIME: . NEUROLOGY: HAVE YOU FALLEN IN THE PAST 6 MONTHS? NO . ANY NEW EXTREMITY NUMBNESS OR WEAKNESS? NO . CARDIOLOGY: DO YOU HAVE A PACEMAKER OR DEFIBRILLATOR? NO . RESPIRATORY: HAVE YOU BEEN SICK IN THE PAST WEEK? NO . FEVER NO . FLU LIKE SYMPTOMS? NO . COUGH NO . INTEGUMENTARY: DO YOU HAVE ANY RASHES OR OPEN SORES? NO . ALLERGIC/IMMUNO: ARE YOU ALLERGIC TO SHELLFISH OR IV DYE? NO . ANY NEW ALLERGIES? NO . PSYCHIATRIC: DO YOU HAVE THOUGHTS OF HURTING YOURSELF OR SOMEONE ELSE? NO . ARE YOU ABUSED, NEGLECTED, OR IN AN UNSAFE ENVIRONMENT? NO . ENDOCRINOLOGY: ARE YOU DIABETIC? NO . OTHER: DO YOU NEED ANY PRESCRIPTIONS? NO . IF YES, PLEASE LIST: ____ . ANY NEW PROBLEMS WITH YOUR MEDICATIONS? NO . WHEN DID YOU LAST EAT? ____ . WHEN DID YOU LAST DRINK? ____ . WHAT DID YOU LAST DRINK? ____ . NAME OF PERSON DRIVING YOU HOME? ____ . DO YOU HAVE ANY OTHER QUESTIONS OR CONCERNS NO . VITAL SIGNS WT 141 LBS, HT 62.5 IN, BMI 25.38 INDEX, BP 156/74 MM HG, HR 70 /MIN, RR 16 /MIN, TEMP 97.5 F, OXYGEN SAT % 97%, SAFE IN ENV? (Y/N) YES, NA INITIALS AW 1010, REVIEWED BY: CS. EXAMINATION GENERAL EXAMINATION: GENERAL APPEARANCE:WEEPY.AWAKE AND ALERT.. NECK:NEGATIVE FOR LYMPHADENOPATHY.. LUNGS:LUNG SOUNDS ARE CLEAR.RESPIRATIONS NON-LABORED.. HEART:HRRS1/S2. ASSESSMENTS LEFT HAND PAIN - M79.642 (PRIMARY) TREATMENT LEFT HAND PAIN CONTINUE GABAPENTIN CAPSULE, 300 MG, 1, ORALLY, BID PROCEDURE CODES FA211 ESTABILISHED PATIENT [facility] CHARGE DISPOSITION & COMMUNICATION FOLLOW UP 3 MONTHS ELECTRONICALLY SIGNED BY ROSA MORA ON 01/08/2017 AT 10:31 AM EDT DISCLAIMER : THIS IS A VISIT SUMMARY EXTRACTED FROM THE [employer] CHART. IT IS NOT A COPY OF THE [employer] PROGRESS NOTE. MTDD
== END ==
LOC: M PAIN 10:00
PROVIDERS: ATTEND Nurse Practitioner Family
DX: G89.29 Other chronic pain (principal); M79.642 Pain in left hand; S62.91XS Unspecified fracture of right hand, sequela; X58.XXXS Exposure to other specified factors, sequela; Z79.82 Long term (current) use of aspirin; Z79.899 Other long term (current) drug therapy

== ENCOUNTER → 2017-04-10 | Outpatient (CLI) | payer OTHER, MEDICAID | LOC: M PAIN 11:15 | DX: M79.642 Pain in left hand (principal); Z79.82 Long term (current) use of aspirin; Z79.899 Other long term (current) drug therapy | CPT/HCPCS: G0463 ==

== ENCOUNTER → 2017-06-26 | Outpatient (REF) | payer OTHER, BC ==
[2017-06-26 17:51] LABS: BASO % 0.6 % (0.0-1.0); EOS # 0.1 10^3/uL (0.0-0.50); EOS % 1.4 % (0.0-3.0); HEMOGLOBIN 14.4 g/dl (12.0-15.5); IMMATURE GRANULOCYTE % 0.3 % (0-3.0); LYMPH # 1.5 10^3/uL (1.5-4.5); LYMPH % 23.3 % (24.0-44.0); MEAN CORPUSCULAR HEMOGLOBIN 30.4 pg (27.0-33.0); MEAN CORPUSCULAR HGB CONC 34.3 g/dl (32.0-36.5); MEAN CORPUSCULAR VOLUME 88.8 fl (80.0-96.0); MONO # 0.6 10^3/uL (0.0-0.8); MONO % 8.8 % (0.0-5.0); NEUTROPHILS # 4.2 10^3/uL (1.8-7.7); NEUTROPHILS % 65.6 % (36.0-66.0); PLATELET COUNT, AUTOMATED 321 10^3/uL (150-450); RED BLOOD COUNT 4.73 10^6/uL (4.00-5.40); RED CELL DISTRIBUTION WIDTH 12.8 % (11.5-14.5); WHITE BLOOD COUNT 6.5 10^3/uL (4.0-10.0)
[2017-06-26 19:10] LABS: ALBUMIN 4.4 GM/DL (3.2-5.2); ALBUMIN/GLOBULIN RATIO 1.29 (1.00-1.93); ALKALINE PHOSPHATASE 53 U/L (45-117); ALT/SGPT 21 U/L (12-78); ANION GAP 8 MEQ/L (8-16); AST/SGOT 10 U/L (7-37); BILIRUBIN,TOTAL 0.4 MG/DL (0.2-1.0); BLOOD UREA NITROGEN 14 MG/DL (7-18); CALCIUM LEVEL 9.4 MG/DL (8.8-10.2); CARBON DIOXIDE LEVEL 25 MEQ/L (21-32); CHLORIDE LEVEL 106 MEQ/L (98-107); CREATININE FOR GFR 0.82 MG/DL (0.55-1.30); GLOMERULAR FILTRATION RATE > 60.0 (>45); GLUCOSE, FASTING 129 MG/DL (70-100); SODIUM LEVEL 139 MEQ/L (136-145); TOTAL PROTEIN 7.8 GM/DL (6.4-8.2)
[2017-06-28 09:46] LABS: HEPATITIS C VIRUS ABY INDEX 0.1 INDEX (<0.8)
== END ==
LOC: M LAB REF 16:24
DX: R51 Headache (principal); R11.2 Nausea with vomiting, unspecified; B34.9 Viral infection, unspecified
CPT/HCPCS: 80053

== ENCOUNTER → 2017-07-18 | Outpatient (CLI) | payer OTHER, MEDICAID | LOC: M PAIN 11:45 | DX: G89.29 Other chronic pain (principal); M79.642 Pain in left hand; Z79.82 Long term (current) use of aspirin; Z79.899 Other long term (current) drug therapy | CPT/HCPCS: G0463 ==

== ENCOUNTER → 2017-11-26 | Outpatient (CLI) | payer OTHER, MEDICAID | LOC: M PAIN 14:15 | DX: M79.642 Pain in left hand (principal); M19.90 Unspecified osteoarthritis, unspecified site; Z79.82 Long term (current) use of aspirin; Z79.899 Other long term (current) drug therapy | CPT/HCPCS: G0463 ==

== ENCOUNTER → 2018-06-26 | Outpatient (CLI) | payer OTHER, MEDICAID ==
[~2018-06-26] MED LIST changes: -ZOFR20TA PO; +ZOFR4TAB16 PO
--- NOTE | 2018-07-10 00:43 | ECWPNPC ---
PATIENT NAME: NEAL MENARD : 1955 GENDER: FEMALE VISIT DATE: 06/26/2018 DISCHARGE DATE: 06/26/18 1442 VISIT LOCKED DATE TIME: PHYSICIAN: TAMIE CARTER RESOURCE: TAMIE CARTER REASON FOR APPOINTMENT 1. LEFT HAND HISTORY OF PRESENT ILLNESS HISTORY OF PRESENT ILLNESS: HERE FOR F/U OF CHRONIC LEFT WRIST PAIN.CURRENTLY TAKING GABAPENTIN 300MG BID.FEELS MEDICATION IS EFFECTIVE.DISCUSSED TRYING TO SLOWLY REDUCE THIS AND SHE IS RECEPTIVE.RATING PAIN VAS 2/10. PAIN THE PATIENT DESCRIBES THE PAIN... FALL RISK SCREENING: SCREENING :NO FALLS REPORTED IN THE LAST YEAR CURRENT MEDICATIONS TAKING MULTIVITAMIN ADULT - TABLET 1 TAB ORALLY DAILY TAKING GLUCOSAMINE 500 MG CAPSULE 1 CAPSULE WITH A MEAL ORALLY BID TAKING VITAMIN B COMPLEX - CAPSULE 1 CAP ORALLY DAILY TAKING GABAPENTIN 300 MG CAPSULE 1 ORALLY BID NOT-TAKING PROBIOTIC - CAPSULE 1 CAPSULE ORALLY DAILY NOT-TAKING ASPIRIN 500 MG TABLET 1 TABLET NEEDED ORALLY TWICE A DAY NEEDED NOT-TAKING CALCIUM 600 MG TABLET 1 TABLET WITH MEALS ORALLY DAILY MEDICATION LIST REVIEWED AND RECONCILED WITH THE PATIENT PAST MEDICAL HISTORY 08/31/2012 LYME DISEASE SEVERE HEADACHE LP.ABY WAS 7.75 IGM POSITIVE IGG NEGATIVE ARTHRITIS PT REPORTS HX OF IRREGULAR HEARTBEAT, UNSURE OF DETAILS LEFT HAND PAIN ALLERGIES N.K.D.A. SURGICAL HISTORY LEFT WRIST FRACTURE 03/02 GANGLION CYST LEFT WRIST LEFT WRIST CARPAL TUNNEL 02/01 FAMILY HISTORY FATHER: , DIAGNOSED WITH DIABETES MOTHER: 78 YRS MOM OF PNEUMONIA. SOCIAL HISTORY GENERAL: TOBACCO USE ARE YOU A:NONSMOKER LATEX QUESTIONNAIRE LATEX ALLERGY : HAVE YOU EVER DEVELOPED ANY TYPE OF REACTION AFTER HANDLING LATEX PRODUCTS SUCH RUBBER GLOVES, CONDOMS, DIAPHRAGMS, BALLOONS, SOCKS, OR UNDERWEAR?NO LATEX ALLERGY : HAVE YOU EVER DEVELOPED ANY TYPE OF REACTION DURING OR AFTER DENTAL APPOINTMENT, VAGINAL/RECTAL EXAMINATION, SURGICAL PROCEDURE, OR ANY OTHER EXPOSURE?NO LATEX RISK : HAVE YOU EVER HAD ANY DIFFICULTY BREATHING OR HIVES AFTER EATING OR HANDLING ANY FRUITS, OR VEGETABLES; SUCH KIWI, BANANAS, STONE FRUITS, OR CHESTNUTSNO LATEX RISK : DO YOU HAVE A PREVIOUS PERSONAL HISTORY OF MORE THAN NINE SURGERIES, SPINA BIFIDA, OR REPEATED CATHERTIZATIONS? NO LATEX RISK : ARE YOU FREQUENTLY EXPOSED TO LATEX PRODUCTS IN YOUR OCCUPATION?NO DATE ASKED : 06/26/2018 ALCOHOL SCREENING DID YOU HAVE A DRINK CONTAINING ALCOHOL IN THE PAST YEAR?YES HOW OFTEN DID YOU HAVE A DRINK CONTAINING ALCOHOL IN THE PAST YEAR?FOUR OR MORE TIMES A WEEK (4 POINTS) HOW MANY DRINKS DID YOU HAVE ON A TYPICAL DAY WHEN YOU WERE DRINKING IN THE PAST YEAR?1 OR 2 (0 POINTS) HOW OFTEN DID YOU HAVE SIX OR MORE DRINKS ON ONE OCCASION IN THE PAST YEAR?NEVER (0 POINTS) POINTS4 INTERPRETATIONPOSITIVE RECREATIONAL DRUG USE DRUG USE?YES SMOKES MARIJUANA APPROXIMATELY ONCE A MONTH CAFFEINE CAFFEINE USE?YES HOW OFTEN AND HOW MUCH? 1-2 CUPS PER DAY SCIENTOLOGY [id number] NONE LANGUAGE LANGUAGES SPOKEN:ERITREAN LEARNING BARRIERS / SPECIAL NEEDS BARRIERS TO LEARNING?NO HEARING IMPAIRED?NO VISION IMPAIRED?YES :CORRECTIVE LENSES COGNITIVELY IMPAIRED?NO READINESS TO LEARN?YES LEARNING PREFERENCES?NO LEARNING CAPABILITIES PRESENT?YES EMOTIONAL BARRIERS?NO SPECIAL DEVICES?NO CHAIRMAN NEEDED?NO PAIN CLINIC PFS, CLERGY, PUBLIC HEALTH REFERRALS PFS REFERRAL NEEDED?NO CLERGY REFERRAL NEEDED?NO PUBLIC HEALTH REFERRAL NEEDED?NO WAS THE PROVIDER NOTIFIED OF ANY PERTINENT INFO?YES HAS THE PATIENT BEEN EDUCATED REGARDING HIS/HER PLAN OF CARE?YES HAS THE PATIENT BEEN EDUCATED REGARDING PAIN, THE RISK FOR PAIN, THE IMPORTANCE OF EFFECTIVE PAIN MANAGEMENT, AND THE PAIN ASSESSMENT PROCESS?YES ADVANCE DIRECTIVE ADVANCE DIRECTIVE DISCUSSED WITH PATIENT:YES PATIENT DECLINES HCP INFORMATION. REVIEWED WITH PT 11/26/17 1503 BVREVIEWED WITH PATIENT 06/26/18 1412 JS. HOSPITALIZATION/MAJOR DIAGNOSTIC PROCEDURE PER PT, PERFORATED BOWEL DURING COLONOSCOPY REVIEW OF SYSTEMS REVIEWED BY: PROVIDER: TAMIE LEE . CONSTITUTIONAL: ANY CHANGE IN YOUR MEDICAL CONDITION? NO . CHILLS NO . FEVER NO . INFECTION: DO YOU HAVE NEW INFECTIONS? NO . DO YOU HAVE HISTORY OF MRSA? NO . MUSCULOSKELETAL: ANY NEW PATTERNS OF PAIN OR NUMBNESS? NO . GASTROENTEROLOGY: ANY NEW CHANGE IN BOWEL CONTROL? NO . GENITOURINARY: ANY NEW CHANGE IN BLADDER CONTROL? NO . IS THERE A CHANCE YOU COULD BE ? NO . HEMATOLOGY/LYMPH: DO YOU TAKE ANY BLOOD THINNERS? (FOR EXAMPLE- COUMADIN, PLAVIX, AGGRENOX, PLATEL, PRADAXA, OR XARELTO) NO . WHEN WAS YOUR LAST DOSE? DATE: TIME: . NEUROLOGY: HAVE YOU FALLEN IN THE PAST 12 MONTHS? NO . ANY NEW EXTREMITY NUMBNESS OR WEAKNESS? NO . CARDIOLOGY: DO YOU HAVE A PACEMAKER OR DEFIBRILLATOR? NO . RESPIRATORY: HAVE YOU BEEN SICK IN THE PAST WEEK? NO . FEVER NO . FLU LIKE SYMPTOMS? NO . COUGH NO . INTEGUMENTARY: DO YOU HAVE ANY RASHES OR OPEN SORES? NO . ALLERGIC/IMMUNO: ARE YOU ALLERGIC TO IV DYE? NO . ANY NEW ALLERGIES? NO . PSYCHIATRIC: DO YOU HAVE THOUGHTS OF HURTING YOURSELF OR SOMEONE ELSE? NO . ARE YOU ABUSED, NEGLECTED, OR IN AN UNSAFE ENVIRONMENT? NO . ENDOCRINOLOGY: ARE YOU DIABETIC? NO . OTHER: DO YOU NEED ANY PRESCRIPTIONS? YES . IF YES, PLEASE LIST: ____GABAPENTIN . ANY NEW PROBLEMS WITH YOUR MEDICATIONS? NO . WHEN DID YOU LAST EAT? ____ . WHEN DID YOU LAST DRINK? ____ . WHAT DID YOU LAST DRINK? ____ . NAME OF PERSON DRIVING YOU HOME? ____ . DO YOU HAVE ANY OTHER QUESTIONS OR CONCERNS YES, STATES SHE IS GOING THROUGH A DIVORCE CURRENTLY, STATES SHE WILL HAVE NO HEALTH INSURANCE ONCE THE DIVORCE FINALIZES. CONCERNED ABOUT THE GABAPENTIN AND HOW SHE WILL PAY FOR IT AND IF SHE WILL HAVE TO WEEN OFF OF IT . VITAL SIGNS WT 132.2 LBS, HT 62.5 IN, BMI 23.79 INDEX, BP 122/65 MM HG, HR 75 /MIN, RR 18 /MIN, TEMP 100.2 F, OXYGEN SAT % 98%, NA INITIALS SC 14:19. EXAMINATION GENERAL EXAMINATION: GENERAL APPEARANCE:ALERT,NO ACUTE DISTRESS. NECK:NEGATIVE FOR LYMPHADENOPATHY.. LUNGS:LUNG SOUNDS ARE CLEAR.RESPIRATIONS NON-LABORED.. HEART:HRRS1/S2. ASSESSMENTS LEFT HAND PAIN - M79.642 (PRIMARY) TREATMENT LEFT HAND PAIN DECREASE GABAPENTIN CAPSULE, 100 MG, 1 TO 2 CAPSULES, ORALLY, BID DIRECTED, 30 DAY(S), 120, REFILLS 2 NOTES: TAKE GABAPENTIN 100MG 2 CAP AM AND PM X 15 DAYS THEN 1 AM AND PM UNTIL F/U. PROCEDURE CODES FA211 ESTABILISHED PATIENT [facility] CHARGE DISPOSITION & COMMUNICATION FOLLOW UP 3 MONTHS ELECTRONICALLY SIGNED BY ROSA MATHEW ON 07/09/2018 AT 05:24 PM EDT DISCLAIMER : THIS IS A VISIT SUMMARY EXTRACTED FROM THE [employer] CHART. IT IS NOT A COPY OF THE [employer] PROGRESS NOTE. MTDD
== END ==
LOC: M PAIN 13:45
PROVIDERS: ATTEND Nurse Practitioner Family
DX: M79.642 Pain in left hand (principal); G89.29 Other chronic pain; M19.90 Unspecified osteoarthritis, unspecified site; Z79.899 Other long term (current) drug therapy

== ENCOUNTER → 2018-09-25 | Outpatient (CLI) | payer OTHER, MEDICAID ==
--- NOTE | 2018-10-08 02:15 | ECWPNPC ---
PATIENT NAME: NEAL MENARD : 1955 GENDER: FEMALE VISIT DATE: 09/25/2018 DISCHARGE DATE: 09/25/18 1356 VISIT LOCKED DATE TIME: PHYSICIAN: TAMIE CARTER RESOURCE: TAMIE CARTER REASON FOR APPOINTMENT 1. LEFT HAND HISTORY OF PRESENT ILLNESS HISTORY OF PRESENT ILLNESS: HERE FOR F/U OF CHRONIC LEFT WRIST PAIN.RECENTLY STOPPED GABAPENTIN 300MG BID.PAIN HAS ESCALATED OVER THE PAST FEW MONTHS.RATING PAIN VAS 5-9/10.REPORTING ALL DAY NUMBNESS AND PAIN IN LEFT HAND AND WRIST. PAIN THE PATIENT DESCRIBES THE PAIN... THE PATIENT DESCRIBES THE PAIN... FALL RISK SCREENING: SCREENING :NO FALLS REPORTED IN THE LAST YEAR CURRENT MEDICATIONS TAKING GABAPENTIN 100 MG CAPSULE 1 TO 2 CAPSULES ORALLY BID DIRECTED NOT-TAKING MULTIVITAMIN ADULT - TABLET 1 TAB ORALLY DAILY NOT-TAKING GLUCOSAMINE 500 MG CAPSULE 1 CAPSULE WITH A MEAL ORALLY BID NOT-TAKING VITAMIN B COMPLEX - CAPSULE 1 CAP ORALLY DAILY NOT-TAKING PROBIOTIC - CAPSULE 1 CAPSULE ORALLY DAILY NOT-TAKING ASPIRIN 500 MG TABLET 1 TABLET NEEDED ORALLY TWICE A DAY NEEDED NOT-TAKING CALCIUM 600 MG TABLET 1 TABLET WITH MEALS ORALLY DAILY MEDICATION LIST REVIEWED AND RECONCILED WITH THE PATIENT PAST MEDICAL HISTORY 08/31/2012 LYME DISEASE SEVERE HEADACHE LP.ABY WAS 7.75 IGM POSITIVE IGG NEGATIVE ARTHRITIS PT REPORTS HX OF IRREGULAR HEARTBEAT, UNSURE OF DETAILS LEFT HAND PAIN ALLERGIES N.K.D.A. SURGICAL HISTORY LEFT WRIST FRACTURE 03/02 GANGLION CYST LEFT WRIST LEFT WRIST CARPAL TUNNEL 02/01 FAMILY HISTORY FATHER: , DIAGNOSED WITH DIABETES MOTHER: 78 YRS MOM OF PNEUMONIA. SOCIAL HISTORY GENERAL: TOBACCO USE ARE YOU A:NONSMOKER PAIN CLINIC PFS, CLERGY, PUBLIC HEALTH REFERRALS PFS REFERRAL NEEDED?NO CLERGY REFERRAL NEEDED?NO PUBLIC HEALTH REFERRAL NEEDED?NO WAS THE PROVIDER NOTIFIED OF ANY PERTINENT INFO?YES HAS THE PATIENT BEEN EDUCATED REGARDING HIS/HER PLAN OF CARE?YES HAS THE PATIENT BEEN EDUCATED REGARDING PAIN, THE RISK FOR PAIN, THE IMPORTANCE OF EFFECTIVE PAIN MANAGEMENT, AND THE PAIN ASSESSMENT PROCESS?YES LATEX QUESTIONNAIRE LATEX ALLERGY : HAVE YOU EVER DEVELOPED ANY TYPE OF REACTION AFTER HANDLING LATEX PRODUCTS SUCH RUBBER GLOVES, CONDOMS, DIAPHRAGMS, BALLOONS, SOCKS, OR UNDERWEAR?NO LATEX ALLERGY : HAVE YOU EVER DEVELOPED ANY TYPE OF REACTION DURING OR AFTER DENTAL APPOINTMENT, VAGINAL/RECTAL EXAMINATION, SURGICAL PROCEDURE, OR ANY OTHER EXPOSURE?NO LATEX RISK : HAVE YOU EVER HAD ANY DIFFICULTY BREATHING OR HIVES AFTER EATING OR HANDLING ANY FRUITS, OR VEGETABLES; SUCH KIWI, BANANAS, STONE FRUITS, OR CHESTNUTSNO LATEX RISK : DO YOU HAVE A PREVIOUS PERSONAL HISTORY OF MORE THAN NINE SURGERIES, SPINA BIFIDA, OR REPEATED CATHERIZATIONS? NO LATEX RISK : ARE YOU FREQUENTLY EXPOSED TO LATEX PRODUCTS IN YOUR OCCUPATION?NO DATE ASKED : 09/25/2018 CAFFEINE CAFFEINE USE?YES HOW OFTEN AND HOW MUCH? 1-2 CUPS PER DAY ADVANCE DIRECTIVE ADVANCE DIRECTIVE DISCUSSED WITH PATIENT:YES PATIENT DECLINES HCP INFORMATION, PT DECLINES ASSISTANCE WITH PAPERWORK. DS LATTER-DAY [id number] NONE LANGUAGE LANGUAGES SPOKEN:BOTSWANAN ALCOHOL SCREENING DID YOU HAVE A DRINK CONTAINING ALCOHOL IN THE PAST YEAR?YES HOW OFTEN DID YOU HAVE A DRINK CONTAINING ALCOHOL IN THE PAST YEAR?FOUR OR MORE TIMES A WEEK (4 POINTS) HOW MANY DRINKS DID YOU HAVE ON A TYPICAL DAY WHEN YOU WERE DRINKING IN THE PAST YEAR?1 OR 2 (0 POINTS) HOW OFTEN DID YOU HAVE SIX OR MORE DRINKS ON ONE OCCASION IN THE PAST YEAR?NEVER (0 POINTS) POINTS4 INTERPRETATIONPOSITIVE RECREATIONAL DRUG USE DRUG USE?YES SMOKES MARIJUANA APPROXIMATELY ONCE A MONTH LEARNING BARRIERS / SPECIAL NEEDS BARRIERS TO LEARNING?NO HEARING IMPAIRED?NO VISION IMPAIRED?YES :CORRECTIVE LENSES COGNITIVELY IMPAIRED?NO READINESS TO LEARN?YES LEARNING PREFERENCES?NO LEARNING CAPABILITIES PRESENT?YES EMOTIONAL BARRIERS?NO SPECIAL DEVICES?NO ETHYLENE PLANT OPERATOR NEEDED?NO REVIEWED WITH PT 11/26/17 1503 BVREVIEWED WITH PATIENT 06/26/18 1412 JS. HOSPITALIZATION/MAJOR DIAGNOSTIC PROCEDURE PER PT, PERFORATED BOWEL DURING COLONOSCOPY REVIEW OF SYSTEMS REVIEWED BY: PROVIDER: TAMIE LEE . CONSTITUTIONAL: ANY CHANGE IN YOUR MEDICAL CONDITION? NO . CHILLS NO . FEVER NO . INFECTION: DO YOU HAVE NEW INFECTIONS? NO . DO YOU HAVE HISTORY OF MRSA? NO . MUSCULOSKELETAL: ANY NEW PATTERNS OF PAIN OR NUMBNESS? YES, INCREASED PAIN IN LEFT HAND . GASTROENTEROLOGY: ANY NEW CHANGE IN BOWEL CONTROL? NO . GENITOURINARY: ANY NEW CHANGE IN BLADDER CONTROL? NO . IS THERE A CHANCE YOU COULD BE ? NO . HEMATOLOGY/LYMPH: DO YOU TAKE ANY BLOOD THINNERS? (FOR EXAMPLE- COUMADIN, PLAVIX, AGGRENOX, PLATEL, PRADAXA, OR XARELTO) NO . WHEN WAS YOUR LAST DOSE? DATE: TIME: . NEUROLOGY: HAVE YOU FALLEN IN THE PAST 12 MONTHS? NO . ANY NEW EXTREMITY NUMBNESS OR WEAKNESS? NO . CARDIOLOGY: DO YOU HAVE A PACEMAKER OR DEFIBRILLATOR? NO . RESPIRATORY: HAVE YOU BEEN SICK IN THE PAST WEEK? NO . FEVER NO . FLU LIKE SYMPTOMS? NO . COUGH NO . INTEGUMENTARY: DO YOU HAVE ANY RASHES OR OPEN SORES? NO . ALLERGIC/IMMUNO: ARE YOU ALLERGIC TO IV DYE? NO . ANY NEW ALLERGIES? NO . PSYCHIATRIC: DO YOU HAVE THOUGHTS OF HURTING YOURSELF OR SOMEONE ELSE? NO . ARE YOU ABUSED, NEGLECTED, OR IN AN UNSAFE ENVIRONMENT? NO . ENDOCRINOLOGY: ARE YOU DIABETIC? NO . OTHER: DO YOU NEED ANY PRESCRIPTIONS? YES, GABAPENTIN . IF YES, PLEASE LIST: ____ . ANY NEW PROBLEMS WITH YOUR MEDICATIONS? NO . WHEN DID YOU LAST EAT? ____ . WHEN DID YOU LAST DRINK? ____ . WHAT DID YOU LAST DRINK? ____ . NAME OF PERSON DRIVING YOU HOME? ____ . DO YOU HAVE ANY OTHER QUESTIONS OR CONCERNS NO . VITAL SIGNS WT 124.2 LBS, HT 62.5 IN, BMI 22.35 INDEX, BP 124/82 MM HG, HR 66 /MIN, RR 18 /MIN, TEMP 97.9 F, OXYGEN SAT % 98, SAFE IN ENV? (Y/N) Y, REVIEWED BY: ONESIMO. EXAMINATION GENERAL EXAMINATION: GENERALALERT,NO ACUTE DISTRESS. NECK:NEGATIVE FOR LYMPHADENOPATHY.. LUNGS:LUNG SOUNDS ARE CLEAR.RESPIRATIONS NON-LABORED.. HEART:HRRS1/S2. ASSESSMENTS LEFT HAND PAIN - M79.642 (PRIMARY) TREATMENT LEFT HAND PAIN NOTES: PATIENT WILL RESTART GABAPENTIN 300MG BID. PROCEDURE CODES FA211 ESTABILISHED PATIENT [facility] FACILITY CHARGE DISPOSITION & COMMUNICATION FOLLOW UP 3 MONTHS (REASON: LEFT HAND PAIN -MED MGMNT) ELECTRONICALLY SIGNED BY ROSA MATHEW ON 10/06/2018 AT 01:16 PM EDT DISCLAIMER : THIS IS A VISIT SUMMARY EXTRACTED FROM THE [employer] CHART. IT IS NOT A COPY OF THE [employer] PROGRESS NOTE. KEMI
== END ==
LOC: M PAIN 13:30
PROVIDERS: ATTEND Nurse Practitioner Family
DX: M79.642 Pain in left hand (principal); Z79.82 Long term (current) use of aspirin; Z79.899 Other long term (current) drug therapy

== ENCOUNTER → 2019-01-01 | Outpatient (CLI) | payer OTHER, MEDICAID ==
--- NOTE | 2019-01-05 13:16 | ECWPNPC ---
PATIENT NAME: NEAL MENARD : 1955 GENDER: FEMALE VISIT DATE: 01/01/2019 DISCHARGE DATE: 01/01/19 0000 VISIT LOCKED DATE TIME: PHYSICIAN: TAMIE CARTER RESOURCE: TAMIE CARTER REASON FOR APPOINTMENT 1. LEFT HAND HISTORY OF PRESENT ILLNESS HISTORY OF PRESENT ILLNESS: HERE FOR F/U OF CHRONIC RIGHT HAND PAIN.TRIED TO GO OFF GABAPENTIN BUT FOUND THAT SHE HAS BETTER PAIN CONTROL BEING ON GABAPENTIN 100MG BID.RATING PAIN VAS 5/10.DISCUSSED FACT THAT PRIMARY CARE MORE THAN LIKELY COULD FOLLOW HER FROM THIS POINT FORWARD AND IF PAIN IS NOT CONTROLLED WITH GABAPENTIN 100MG BID SHE COULD BE REFERRED BACK FOR REEVALUATION.FOLL[facility] WITH [facility] [place]. PAIN THE PATIENT DESCRIBES THE PAIN... FALL RISK SCREENING: SCREENING :NO FALLS REPORTED IN THE LAST YEAR CURRENT MEDICATIONS TAKING GABAPENTIN 100 MG CAPSULE 1 TO 2 CAPSULES ORALLY BID DIRECTED NOT-TAKING MULTIVITAMIN ADULT - TABLET 1 TAB ORALLY DAILY NOT-TAKING GLUCOSAMINE 500 MG CAPSULE 1 CAPSULE WITH A MEAL ORALLY BID NOT-TAKING VITAMIN B COMPLEX - CAPSULE 1 CAP ORALLY DAILY NOT-TAKING PROBIOTIC - CAPSULE 1 CAPSULE ORALLY DAILY NOT-TAKING ASPIRIN 500 MG TABLET 1 TABLET NEEDED ORALLY TWICE A DAY NEEDED NOT-TAKING CALCIUM 600 MG TABLET 1 TABLET WITH MEALS ORALLY DAILY MEDICATION LIST REVIEWED AND RECONCILED WITH THE PATIENT PAST MEDICAL HISTORY 08/31/2012 LYME DISEASE SEVERE HEADACHE LP.ABY WAS 7.75 IGM POSITIVE IGG NEGATIVE ARTHRITIS PT REPORTS HX OF IRREGULAR HEARTBEAT, UNSURE OF DETAILS LEFT HAND PAIN ALLERGIES N.K.D.A. SURGICAL HISTORY LEFT WRIST FRACTURE 03/02 GANGLION CYST LEFT WRIST LEFT WRIST CARPAL TUNNEL 02/01 FAMILY HISTORY FATHER: , DIAGNOSED WITH DIABETES MOTHER: 78 YRS MOM OF PNEUMONIA. SOCIAL HISTORY GENERAL: TOBACCO USE ARE YOU A:[facility] PFS, CLERGY, PUBLIC HEALTH REFERRALS PFS REFERRAL NEEDED?NO CLERGY REFERRAL NEEDED?NO PUBLIC HEALTH REFERRAL NEEDED?NO WAS THE PROVIDER NOTIFIED OF ANY PERTINENT INFO?YES HAS THE PATIENT BEEN EDUCATED REGARDING HIS/HER PLAN OF CARE?YES HAS THE PATIENT BEEN EDUCATED REGARDING PAIN, THE RISK FOR PAIN, THE IMPORTANCE OF EFFECTIVE PAIN MANAGEMENT, AND THE PAIN ASSESSMENT PROCESS?YES LATEX QUESTIONNAIRE LATEX ALLERGY : HAVE YOU EVER DEVELOPED ANY TYPE OF REACTION AFTER HANDLING LATEX PRODUCTS SUCH RUBBER GLOVES, CONDOMS, DIAPHRAGMS, BALLOONS, SOCKS, OR UNDERWEAR?NO LATEX ALLERGY : HAVE YOU EVER DEVELOPED ANY TYPE OF REACTION DURING OR AFTER DENTAL APPOINTMENT, VAGINAL/RECTAL EXAMINATION, SURGICAL PROCEDURE, OR ANY OTHER EXPOSURE?NO DATE ASKED : 09/25/2018 LATEX RISK : HAVE YOU EVER HAD ANY DIFFICULTY BREATHING OR HIVES AFTER EATING OR HANDLING ANY FRUITS, OR VEGETABLES; SUCH KIWI, BANANAS, STONE FRUITS, OR CHESTNUTSNO LATEX RISK : DO YOU HAVE A PREVIOUS PERSONAL HISTORY OF MORE THAN NINE SURGERIES, SPINA BIFIDA, OR REPEATED CATHERIZATIONS? NO LATEX RISK : ARE YOU FREQUENTLY EXPOSED TO LATEX PRODUCTS IN YOUR OCCUPATION?NO CAFFEINE CAFFEINE USE?YES HOW OFTEN AND HOW MUCH? 1-2 CUPS PER DAY ADVANCE DIRECTIVE ADVANCE DIRECTIVE DISCUSSED WITH PATIENT:YES PATIENT DECLINES HCP INFORMATION, PT DECLINES ASSISTANCE WITH PAPERWORK. DS LUTHERAN [id number] NONE LANGUAGE LANGUAGES SPOKEN:[place] ALCOHOL SCREENING DID YOU HAVE A DRINK CONTAINING ALCOHOL IN THE PAST YEAR?YES HOW OFTEN DID YOU HAVE SIX OR MORE DRINKS ON ONE OCCASION IN THE PAST YEAR?NEVER (0 POINTS) HOW MANY DRINKS DID YOU HAVE ON A TYPICAL DAY WHEN YOU WERE DRINKING IN THE PAST YEAR?1 OR 2 (0 POINTS) HOW OFTEN DID YOU HAVE A DRINK CONTAINING ALCOHOL IN THE PAST YEAR?FOUR OR MORE TIMES A WEEK (4 POINTS) POINTS4 INTERPRETATIONPOSITIVE RECREATIONAL DRUG USE DRUG USE?YES SMOKES MARIJUANA APPROXIMATELY ONCE A MONTH LEARNING BARRIERS / SPECIAL NEEDS BARRIERS TO LEARNING?NO HEARING IMPAIRED?NO VISION IMPAIRED?YES COGNITIVELY IMPAIRED?NO :CORRECTIVE LENSES READINESS TO LEARN?YES LEARNING PREFERENCES?NO LEARNING CAPABILITIES PRESENT?YES EMOTIONAL BARRIERS?NO SPECIAL DEVICES?NO RECORDS COORDINATOR NEEDED?NO REVIEWED WITH PT 11/26/17 1503 BVREVIEWED WITH PATIENT 06/26/18 1412 JSREVIEWED WITH PATIENT 01/01/19 1004 NLJ. HOSPITALIZATION/MAJOR DIAGNOSTIC PROCEDURE PER PT, PERFORATED BOWEL DURING COLONOSCOPY REVIEW OF SYSTEMS REVIEWED BY: PROVIDER: TAMIE LEE . CONSTITUTIONAL: ANY CHANGE IN YOUR MEDICAL CONDITION? NO . CHILLS NO . FEVER NO . INFECTION: DO YOU HAVE NEW INFECTIONS? NO . DO YOU HAVE HISTORY OF MRSA? NO . MUSCULOSKELETAL: ANY NEW PATTERNS OF PAIN OR NUMBNESS? NO- STATES PAIN IS NOT ANY WORSE, STATES THAT THE GABAPENTIN DOES WORK, STATES SHE OCASIONALLY ALSO HAS NUMBNESS AND/OR TINGLING . GASTROENTEROLOGY: ANY NEW CHANGE IN BOWEL CONTROL? NO . GENITOURINARY: ANY NEW CHANGE IN BLADDER CONTROL? NO . IS THERE A CHANCE YOU COULD BE ? NO . HEMATOLOGY/LYMPH: DO YOU TAKE ANY BLOOD THINNERS? (FOR EXAMPLE- COUMADIN, PLAVIX, AGGRENOX, PLATEL, PRADAXA, OR XARELTO) NO . WHEN WAS YOUR LAST DOSE? DATE: TIME: . NEUROLOGY: HAVE YOU FALLEN IN THE PAST 12 MONTHS? NO . ANY NEW EXTREMITY NUMBNESS OR WEAKNESS? NO . CARDIOLOGY: DO YOU HAVE A PACEMAKER OR DEFIBRILLATOR? NO . RESPIRATORY: HAVE YOU BEEN SICK IN THE PAST WEEK? NO . FEVER NO . FLU LIKE SYMPTOMS? NO . COUGH NO . INTEGUMENTARY: DO YOU HAVE ANY RASHES OR OPEN SORES? NO . ALLERGIC/IMMUNO: ARE YOU ALLERGIC TO IV DYE? NO . ANY NEW ALLERGIES? NO . PSYCHIATRIC: DO YOU HAVE THOUGHTS OF HURTING YOURSELF OR SOMEONE ELSE? NO . ARE YOU ABUSED, NEGLECTED, OR IN AN UNSAFE ENVIRONMENT? NO . ENDOCRINOLOGY: ARE YOU DIABETIC? NO . OTHER: DO YOU NEED ANY PRESCRIPTIONS? YES . IF YES, PLEASE LIST: ____GABAPENTIN . ANY NEW PROBLEMS WITH YOUR MEDICATIONS? NO . WHEN DID YOU LAST EAT? ____ . WHEN DID YOU LAST DRINK? ____ . WHAT DID YOU LAST DRINK? ____ . NAME OF PERSON DRIVING YOU HOME? ____ . DO YOU HAVE ANY OTHER QUESTIONS OR CONCERNS NO . VITAL SIGNS WT 126.6 LBS, HT 62.5 IN, BMI 22.78 INDEX, BP 114/68 MM HG, HR 67 /MIN, RR 16 /MIN, TEMP 97.1 F, OXYGEN SAT % 99%, SAFE IN ENV? (Y/N) YES, NA INITIALS NV 10:06, REVIEWED BY: YANNICK. EXAMINATION GENERAL EXAMINATION: GENERALALERT,NO ACUTE DISTRESS. NECK:NEGATIVE FOR LYMPHADENOPATHY.. LUNGS:LUNG SOUNDS ARE CLEAR.RESPIRATIONS NON-LABORED.. HEART:HRRS1/S2. ASSESSMENTS LEFT HAND PAIN - M79.642 (PRIMARY) TREATMENT LEFT HAND PAIN REFILL GABAPENTIN CAPSULE, 100 MG, 1 CAP, ORALLY, BID DIRECTED, 30 DAY(S), 60, REFILLS 5 NOTES: PATIENT GILA SCHEDULE F/U WITH PRIMARY CARE TO DISCUSS MEDICINE MANAGEMENT WITH GABAPENTIN 100MG BID CLOSER TO HOME FOR CONVENIENCE OF PATIENT.SHE HAS BEEN STABLE FOR SEVERAL MONTHS WITH GABAPENTIN 100MG BID. PROCEDURE CODES FA211 ESTABILISHED PATIENT [facility] CHARGE DISPOSITION & COMMUNICATION FOLLOW UP PT WILL CALL ELECTRONICALLY SIGNED BY ROSA MATHEW ON 01/01/2019 AT 10:40 AM EDT DISCLAIMER : THIS IS A VISIT SUMMARY EXTRACTED FROM THE [employer] CHART. IT IS NOT A COPY OF THE [employer] PROGRESS NOTE. KEMI
== END ==
LOC: M PAIN 10:00
PROVIDERS: ATTEND Nurse Practitioner Family
DX: M79.642 Pain in left hand (principal); G89.29 Other chronic pain; M19.90 Unspecified osteoarthritis, unspecified site; Z79.899 Other long term (current) drug therapy